=== PATIENT | female | born 1950 | race Caucasian/White ===

== ENCOUNTER 2016-10-16 07:51 | Day surgery (SDC) | payer OTHER ==
[2016-10-16] MEDS ORDERED: LIDOCAINE HCL/PF 5 ML VIAL IJ ONE ×2 (08:50)
[2016-10-16] MEDS ORDERED: IOPAMIDOL 20 ML VIAL IJ ONE ×2 (08:50)
[2016-10-16] MEDS ORDERED: DEXAMETHASONE SOD PHOSPHATE 10 MG/ML VIAL IJ ONE (08:50)
--- NOTE | 2016-10-16 09:20 | OR ---
Anesthesia Pre Procedure Eval Pre Procedure Evaluation: Last Vital Signs Temp 36.6 C 10/16/16 09:15 Pulse 77 10/16/16 09:15 Resp 16 10/16/16 09:15 BP 114/67 10/16/16 09:15 Pulse Ox 99 10/16/16 09:15 O2 Oxygen Delivery Method Room Air PRE PROCEDURE EVALUATION:: DATE: 10/16/2016 TIME: 0 900 INDICATIONS: Radicular low back pain. Multilevel bulging disc. PAST MEDICAL HISTORY: No previous epidural steroid injections. EXAM: Lungs clear and equal. Heart rate regular. Procedure risks and benefits were explained to and accepted by the patient. ASSESSMENT OF MEDICAL STATUS: No contraindication to epidural steroid injection. PLANNED PROCEDURE : Fluoroscopy-guided epidural injection at L5-S1 Home Medications: HOME MEDICATIONS Atorvastatin Calcium [Lipitor] 20 mg PO DAILY 10/15/16 [Last Taken Unknown] Diclofenac Sodium [Voltaren] 75 mg PO BID 10/15/16 [Last Taken Unknown] Levothyroxine Sodium [Synthroid] 75 mcg PO DAILY 10/15/16 [Last Taken Unknown] Lisinopril [Zestril] 20 mg PO DAILY 10/15/16 [Last Taken 10/15/16] clonazePAM [Klonopin] 1 mg PO HS 10/15/16 [Last Taken Unknown] metFORMIN HCL [Glucophage] 500 mg PO BIDWM 10/15/16 [Last Taken Unknown]
--- NOTE | 2016-10-16 09:23 | OR ---
Anesthesia Procedure Note - Anesthesia Procedure Note Narrative: Vital Signs - Last Taken Temp 36.6 C 10/16/16 09:15 Pulse 77 10/16/16 09:15 Resp 16 10/16/16 09:15 BP 114/67 10/16/16 09:15 Pulse Ox 99 10/16/16 09:15 O2 Oxygen Delivery Method Room Air 10/16/16 09:20 ANESTHESIA PROCEDURE NOTE Date of Procedure: 10/16/2016 Time of procedure: 0900. Performed by: Jaison Osorio CRNA [employer] Clinical [employer] Associate: None. Preprocedure diagnosis: Radicular low back pain. Multilevel bulging disc.. Post procedure diagnosis: Same. Procedure: Epidural Steroid Injection at L5-S1. Indications: Radicular low back pain. Findings: See below. Details of the procedure: The patient was brought back to operating room #3. The patient was then placed in the prone position. Back was prepped with DuraPrep. Patient was then draped in sterile fashion. Lidocaine 1% was infiltrated to the skin and subcutaneous tissues at the level of the L5-S1 interspace. The epidural space was identified using a 20-gauge Tuohy needle with [id number]-oagctwmzwe technique and fluoroscopic guidance. A total of 4 mL of Isovue-200 contrast dye was injected in first the AP and lateral positions to confirm needle placement. Dexamethasone 10 mg + 5 mL of 1% preservative- free lidocaine was administered to the epidural space after negative aspiration for blood and CSF. The Tuohy needle was removed intact. A Band-Aid was applied to the patient's back. The patient was then placed in a supine position for 5 minutes before returning to the ambulatory surgical unit. A total of 59.69 seconds of fluoroscopy time was used along with 53.8 m/gy. EBL: Minimal. Fluids: N/A. Specimen: N/A. Post procedure condition: The patient tolerated the procedure well. No complications were noted. Thank you for this consultation. Jaison Osorio CRNA
[2016-10-16 10:00] VITALS: BP 98/60
== END 2016-10-16 07:52 | disposition home or self-care (01) ==
LOC: AMB 07:51
PROVIDERS: ATTEND Family Medicine
PROC: 3E0S3BZ Introduction of Anesthetic Agent into Epidural Space, Percutaneous Approach (ICD-10-PCS; 2016-10-16)
PROC: 3E0S33Z Introduction of Anti-inflammatory into Epidural Space, Percutaneous Approach (ICD-10-PCS; principal; 2016-10-16 08:30)
DX: M51.26 Other intervertebral disc displacement, lumbar region (principal)